=== PATIENT | female | born 1940 | race Caucasian/White ===

== ENCOUNTER 2018-07-17 12:07 | Emergency (ER) | payer MEDICARE, OTHER ==
[~2018-07-17] VITALS: Ht 152.4 cm; Wt 74.8 kg
[2018-07-17 12:25] VITALS: BP 160/62
--- NOTE | 2018-07-17 13:55 | NUR ---
Pt signed out AMA "cant wait" Discharged [email or web address] against medical advice
== END 2018-07-17 13:59 | disposition home or self-care (01) ==
LOC: ER 12:16
DX: S62.317A Displaced fracture of base of fifth metacarpal bone, left hand, initial encounter for closed fracture (principal); I10 Essential (primary) hypertension; W18.39XA Other fall on same level, initial encounter; Y93.89 Activity, other specified; Y92.89 Other specified places as the place of occurrence of the external cause; Y99.8 Other external cause status
CPT/HCPCS: 29125; 73130; 99284; A4606; Z7610